=== PATIENT | female | born 1975 | race Caucasian/White ===

== ENCOUNTER 2016-11-02 20:29 | Emergency (ER) | payer MEDICAID, OTHER ==
[~2016-11-02] VITALS: Ht 157.5 cm; Wt 81.0 kg
[~2016-11-02 20:29] MED LIST: CYCL-36 PO; IBUP-232 PO; ZOLO20CO PO
[2016-11-02 20:42] VITALS: BP 117/78; PULSE 86; RESP 16; TEMP 97.8; O2SAT 98
[2016-11-02 21:28] LABS: BLOOD, URINE TRACE (NEG); GLUCOSE,URINE NEG (NEG); KETONE, URINE NEG (NEG); NITRITE,URINE NEG (NEG); PH, URINE 5.5 (5.0-8.5)
[2016-11-02 21:40] LABS: URINE COLOR YELLOW (YELLW/STRAW)
[2016-11-02 21:41] LABS: COMMENT (UR) CULT NOT INDICATED; CULTURE IF INDICATED CULT NOT INDICATED; SQUAMOUS EPITHELIAL CELL URINE 0-5 /hpf (0-5); WBC, URINE 0-2 /hpf (0-5)
[2016-11-03 00:05] VITALS: BP 111/69; PULSE 75; RESP 16; O2SAT 98
[2016-11-03 00:58] LABS: AUTOMATED NEUTROPHIL # 5.9 TH/MM3 (1.8-7.7); BASOPHIL # 0.1 TH/MM3 (0-0.2); BASOPHIL % 0.5 % (0.0-2.0); EOSINOPHIL # 0.3 TH/MM3 (0-0.4); EOSINOPHIL % 2.8 % (0.0-4.0); HEMATOCRIT 35.2 % (35.0-46.0); HEMO FLAGS DIFF FINAL; LYMPH % 29.5 % (9.0-44.0); MEAN CELL VOLUME 85.2 FL (80.0-100.0); MEAN CORPUSCULAR HEMOGLOBIN 27.7 PG (27.0-34.0); MEAN CORPUSCULAR HGB CONC 32.6 % (32.0-36.0); MONO % 7.9 % (0.0-8.0); NEUT % 59.3 % (16.0-70.0); PLATELET COUNT 315 TH/MM3 (150-450); RED BLOOD COUNT 4.14 MIL/MM3 (4.00-5.30); RED CELL DISTRIBUTION WIDTH 13.4 % (11.6-17.2); WHITE BLOOD COUNT 10.1 TH/MM3 (4.0-11.0)
[2016-11-03 01:04] LABS: POTASSIUM 3.7 MEQ/L (3.5-5.1)
[2016-11-03] MEDS ORDERED: ZOLO100T PO (01:06)
[2016-11-03 01:07] LABS: BICARBONATE 28.1 MEQ/L (21.0-32.0)
--- NOTE | 2016-11-03 01:49 | RADHPO ---
EXAM DATE/TIME: 11/03/2016 01:26 [facility] COMPARISON: No previous studies available for comparison. INDICATIONS : Right flank pain. ORAL CONTRAST: No oral contrast ingested. RADIATION DOSE: 17.34 CTDIvol (mGy) MEDICAL HISTORY : None SURGICAL HISTORY : Tubal ligation. ENCOUNTER: Initial ACUITY: 2 weeks PAIN SCALE: 4/10 LOCATION: Right flank TECHNIQUE: Volumetric scanning of the abdomen and pelvis was performed. Using automated exposure control and ad justment of the mA and/or kV according to patient size, radiation dose was kept as low as reasonably achievable to obtain optimal diagnostic quality images. The lack of IV contrast limits the diagnosis for certain organ pathology. FINDINGS: LOWER LUNGS: The visualized lower lungs are clear. LIVER: Homogeneous density without lesion. There is no dilation of the biliary tree. No calcified gallston es. SPLEEN: Normal size without lesion. PANCREAS: Within normal limits. KIDNEYS: Normal in size and shape. There is no mass, stone, or hydronephrosis. ADRENAL GLANDS: Within normal limits. VASCULAR: There is no aortic aneurysm. BOWEL/MESENTERY: The stomach, small bowel, and colon demonstrate no acute abnormality. There is no free intraperitone al air or fluid. The appendix is unremarkable. There is stool throughout the colon. No inflammatory c hanges. ABDOMINAL WALL: Within normal limits. RETROPERITONEUM: There is no lymphadenopathy. BLADDER: No wall thickening or mass. REPRODUCTIVE: Within normal limits. INGUINAL: There is no lymphadenopathy or hernia. MUSCULOSKELETAL: Within normal limits for patient age. CONCLUSION: 1. No calcified renal stones or hydronephrosis. 2. Unremarkable CT scan of the abdomen and pelvis. Jonathan Lozano MD on November 03, 2016 at 1:45 Board Certified Radiologist. This report was verified electronically.
--- NOTE | 2016-11-03 02:10 | PD ---
HPI Chief Complaint: R D Engineer Problem/Complaint Time Seen by Provider: 00:16 Travel History International Travel<30 days: No Contact w/Intl Traveler<30days: No Traveled to known affect area: No History of Present Illness HPI 41-year-old female presents to the emergency department for complaint of painful urination pelvic pain and back pain. Patient states symptoms have been present progressively worsening over the past one month. Patient is been seen by her primary care provider and in urgent care twice. Patient has been referred to her hydraulic spinner with appointment November 10. Patient states pain is worsening and unable to wait until her GRIPPER ATTACHER appointment for further evaluation. Patient states that symptoms remind her urinary tract infection. Patient's had no fever no chills no nausea no vomiting. Patient denies vaginal discharge or abnormal vaginal bleeding. Last period was normal for her and denies . Patient has been on recent antibiotic. Patient states she has had frequent urinary tract infections in the past and pain is similar although it is not the exact same. Patient states she's had no dyspareunia area. Patient states that pain is worsened by weightbearing and ambulating and lessened by sitting down. Patient does not report any lower extremity numbness tingling or weakness saddle anesthesia or bladder or bowel dysfunction. Patient rates her pain as 5-6/10 in intensity and constant. PFSH Past Medical History Narrative Medical ADD, anxiety depression, UTI, migraines, pneumonia, ovarian cyst tubal ligation ; occasional alcohol use: Nursing notes reviewed Hx Anticoagulant Therapy: No ADD: Yes Anxiety: Yes Depression: Yes Cardiovascular Problems: No Chemotherapy: No Cerebrovascular Accident: No Diabetes: No Diminished Hearing: No Genitourinary: Yes (KIDNEY INFECTIONS) Respiratory: No Immunizations Current: No Migraines: Yes Pneumonia: Yes (CHILDHOOD) Influenza Vaccination: Yes ?: Not LMP: 2 weeks ago : 4 Para: 4 Miscarriage: 0 : 0 Ovarian Cysts: Yes Tubal Ligation: Yes Past Surgical History Gynecologic Surgery: Yes (TUBAL LIGATION) Hysterectomy: No Oral Surgery: Yes (WISDOM TEETH EXTRACTED) Social History Alcohol Use: Yes (WINE OCCAS.) Tobacco Use: No (QUIT 2007) Substance Use: No Allergies-Medications (Allergen,Severity, Reaction): Coded Allergies: No Known Allergies (Verified , 11/03/16) Reported Meds & Prescriptions Reported Meds & Active Scripts Active Reported Zoloft (Sertraline HCl) 100 Mg Tab 100 Mg PO DAILY Review of Systems Except as stated in HPI: all other systems reviewed are Neg Physical Exam Narrative GENERAL: Well-developed well-nourished female in no acute distress no respiratory distress SKIN: Warm and dry. HEAD: Normocephalic. EYES: No scleral icterus. No injection or drainage. NECK: Supple, trachea midline. No JVD or lymphadenopathy. CARDIOVASCULAR: Regular rate and rhythm without murmurs, gallops, or rubs. RESPIRATORY: Breath sounds equal bilaterally. No accessory muscle use. GASTROINTESTINAL: Abdomen soft, non-tender, nondistended. Pelvic exam: Normal external exam no redness no induration no lesions; speculum exam scant white mucous no discharge no blood no clots cervical os closed; bimanual exam tenderness to palpation in the right adnexa no cervical motion tenderness no uterine enlargement no left adnexal tenderness. MUSCULOSKELETAL: No cyanosis, or edema. BACK: Nontender without obvious deformity. No CVA tenderness. Data Data Last Documented VS Vital Signs Date Time Temp Pulse Resp B/P Pulse Ox O2 Delivery O2 Flow Rate FiO2 11/02/16 20:42 97.8 86 16 117/78 98 Room Air Orders Urinalysis - C+S If Indicated (11/02/16 20:53) Ed Urine Pregnancytest Poc (11/02/16 20:53) Complete Blood Count With Diff (11/03/16 00:16) Basic Metabolic Panel (Bmp) (11/03/16 00:16) Wet Prep Profile (11/03/16 00:17) Gc And Chlamydia Pcr (11/03/16 00:17) Ct Abd/Pel W/O Iv Contrast (11/03/16 ) Labs Laboratory Tests Test 11/02/16 11/03/16 21:07 00:49 Urine Color YELLOW Urine Turbidity HAZY Urine pH 5.5 Urine Specific [place] 1.035 Urine Protein NEG mg/dL Urine Glucose (UA) NEG mg/dL Urine Ketones NEG mg/dL Urine Occult Blood TRACE Urine Nitrite NEG Urine Bilirubin NEG Urine Leukocyte Esterase NEG Urine WBC 0-2 /hpf Urine Squamous Epithelial 0-5 /hpf Cells Microscopic Urinalysis Comment CULT NOT INDICATED White Blood Count 10.1 TH/MM3 Red Blood Count 4.14 MIL/MM3 Hemoglobin 11.5 GM/DL Hematocrit 35.2 % Mean Corpuscular Volume 85.2 FL Mean Corpuscular Hemoglobin 27.7 PG Mean Corpuscular Hemoglobin 32.6 % Concent Red Cell Distribution Width 13.4 % Platelet Count 315 TH/MM3 Mean Platelet Volume 7.0 FL Neutrophils (%) (Auto) 59.3 % Lymphocytes (%) (Auto) 29.5 % Monocytes (%) (Auto) 7.9 % Eosinophils (%) (Auto) 2.8 % Basophils (%) (Auto) 0.5 % Neutrophils # (Auto) 5.9 TH/MM3 Lymphocytes # (Auto) 3.0 TH/MM3 Monocytes # (Auto) 0.8 TH/MM3 Eosinophils # (Auto) 0.3 TH/MM3 Basophils # (Auto) 0.1 TH/MM3 CBC Comment DIFF FINAL Differential Comment Clue Cells (Wet Prep) NONE SEEN Vaginal Trichomonas (Wet Prep) NONE SEEN Vaginal Yeast (Wet Prep) NONE SEEN Sodium Level 141 MEQ/L Potassium Level 3.7 MEQ/L Chloride Level 106 MEQ/L Carbon Dioxide Level 28.1 MEQ/L Anion Gap 7 MEQ/L Blood Urea Nitrogen 18 MG/DL Creatinine 0.80 MG/DL Estimat Glomerular Filtration 80 ML/MIN Rate Random Glucose 93 MG/DL Calcium Level 8.3 MG/DL [facility] Medical Decision Making Medical Screen Exam Complete: Yes Emergency Medical Condition: Yes Medical Record Reviewed: Yes Interpretation(s) Last Impressions Abdomen/Pelvis CT 11/03/16 0000 Signed Impressions: Service Date/Time: October 01:26 - CONCLUSION: 1. No calcified renal stones or hydronephrosis. 2. Unremarkable CT scan of the abdomen and pelvis. Jonathan Lozano MD CBC & BMP Diagram 11/03/16 00:49 Vital Signs Date Time Temp Pulse Resp B/P Pulse Ox O2 Delivery O2 Flow Rate FiO2 11/02/16 20:42 97.8 86 16 117/78 98 Room Air poc hcg: negative ua: trace blood o/w wnl Differential Diagnosis Pelvic pain, ovarian cyst, ectopic , PID, STI, UTI, musculoskeletal pain, renal colic Narrative Course Urinalysis trace blood [id number] hCG negative patient with pain on pelvic exam CT abdomen and pelvis ordered X line CBC metabolic panel values in normal range CT abdomen and pelvis reveals no acute abnormality Diagnosis Primary Impression: Pelvic pain Referrals: [facility] 1 week Patient Instructions: General Instructions Additional Instructions: Keep scheduled appointment as planned with hydraulic spinner next week Increase fluid hydration Follow-up with primary care provider call office to schedule appointment May continue to use nonsteroidal anti-inflammatory medication such as ibuprofen/ Advil/Motrin --- May use high-dose ibuprofen 800 mg as often as every 8 hours however do not take this medication with other nonsteroidal anti-inflammatory medication such as Naprosyn naproxen Anaprox or Aleve May use moist heat to area of discomfort as needed Return to the emergency department for any concerns or change in condition Disposition: 01 DISCHARGE HOME Condition: Stable Jill Prajapati MD Nov 03, 2016 02:10
[2016-11-03] MEDS ORDERED: KETOROLAC TROMETHAMINE 30 MG/ML (IVP) VIAL IV PUSH ONE (02:15)
[2016-11-03 02:43] VITALS: BP 117/71
[2016-11-03 12:02] LABS: CHLAMYDIA PCR NOT DETECTED (NOT DETECT); NEISSERIA PCR NOT DETECTED (NOT DETECT)
== END 2016-11-03 02:44 | disposition home or self-care (01) ==
LOC: PHED 20:29
DX: R10.2 Pelvic and perineal pain (principal); M54.9 Dorsalgia, unspecified; Z86.59 Personal history of other mental and behavioral disorders; Z87.440 Personal history of urinary (tract) infections; Z86.69 Personal history of other diseases of the nervous system and sense organs; Z87.42 Personal history of other diseases of the female genital tract; Z87.891 Personal history of nicotine dependence
CPT/HCPCS: 74176; 80048; 81001; 84703; 85025; 87210; 87491; 87591; 96374; 99284; J1885

== ENCOUNTER 2017-08-06 21:38 | Emergency (ER) | payer OTHER ==
[~2017-08-06 21:38] MED LIST changes: -CYCL-36 PO; -IBUP-232 PO; +ZOLO100T PO; -ZOLO20CO PO
[2017-08-06 21:40] VITALS: BP 142/81; PULSE 78; RESP 16; TEMP 98.4; O2SAT 99
[2017-08-06] MEDS ORDERED: predniSONE 50 MG TAB PO ONE (23:00)
[2017-08-06] MEDS ORDERED: KETOROLAC TROMETHAMINE 60 MG/2 ML (IM) VIAL IM ONE (23:00)
--- NOTE | 2017-08-06 23:00 | PD ---
HPI Chief Complaint: Pain: Acute or Chronic Time Seen by Provider: 22:47 Travel History International Travel<30 days: No Contact w/Intl Traveler<30days: No Traveled to known affect area: No History of Present Illness HPI 42-year-old female here for evaluation of acute onset of lower back pain. The patient reports that she bent over to lift up her child's toys at around 8:00 PM when she experienced the pain. The pain is over her lower back, sharp, constant, moderate, worse with movements. She has had similar pains in the past , however this one seems more severe. Pain radiates down her bilateral posterior legs. She is able to ambulate. States that she has had similar pains in the past and was diagnosed with a UTI a kidney infection as well. PFSH Past Medical History Hx Anticoagulant Therapy: No ADD: Yes Anxiety: Yes Depression: Yes Cardiovascular Problems: No Chemotherapy: No Cerebrovascular Accident: No Diabetes: No Diminished Hearing: No Genitourinary: Yes (KIDNEY INFECTIONS) Respiratory: No Immunizations Current: No Migraines: Yes Pneumonia: Yes (CHILDHOOD) ?: Unknown : 4 Para: 4 Miscarriage: 0 : 0 Ovarian Cysts: Yes Tubal Ligation: Yes Past Surgical History Gynecologic Surgery: Yes (TUBAL LIGATION) Hysterectomy: No Oral Surgery: Yes (WISDOM TEETH EXTRACTED) Social History Alcohol Use: Yes (WINE OCCAS.) Tobacco Use: No (QUIT 2007) Substance Use: No Allergies-Medications (Allergen,Severity, Reaction): Coded Allergies: No Known Allergies (Verified , 11/03/16) Reported Meds & Prescriptions Reported Meds & Active Scripts Active Reported Zoloft (Sertraline HCl) 100 Mg Tab 100 Mg PO DAILY Review of Systems Except as stated in HPI: all other systems reviewed are Neg Physical Exam Narrative GENERAL: Well-developed, well-nourished, awake, alert, ambulated to the restroom without difficulty and without assistance. SKIN: Focused skin assessment warm/dry. No rash. HEAD: Atraumatic. Normocephalic. EYES: Pupils equal and round. No scleral icterus. No injection or drainage. ENT: No nasal bleeding or discharge. Mucous membranes pink and moist. NECK: Trachea midline. No JVD. CARDIOVASCULAR: Regular rate and rhythm. No murmur appreciated. RESPIRATORY: No accessory muscle use. Clear to auscultation. Breath sounds equal bilaterally. GASTROINTESTINAL: Abdomen soft, non-tender, nondistended. Hepatic and splenic margins not palpable. MUSCULOSKELETAL: No obvious deformities. No clubbing. No cyanosis. No edema. No CVA tenderness. NEUROLOGICAL: Awake and alert. No obvious cranial nerve deficits. Motor grossly within normal limits. Normal speech. No saddle anesthesia. Normal strength in bilateral lower extremities in flexion and extension at the foot, ankle, knee, and thigh joints. Brisk patellar tendon reflexes bilaterally. Normal sensation in bilateral lower extremities. Moderate lower lumbar spine tenderness without step-off as well as paraspinal tenderness in the lower lumbar region. PSYCHIATRIC: Appropriate mood and affect; insight and judgment normal. Data Data Last Documented VS Vital Signs Date Time Temp Pulse Resp B/P (MAP) Pulse Ox O2 Delivery O2 Flow Rate FiO2 08/06/17 21:40 98.4 78 16 142/81 (101) 99 Room Air Orders Orders Spine, Lumbar Comp W/Obliq (08/06/17 ) Urinalysis - C+S If Indicated (08/06/17 22:52) Ed Urine Pregnancytest Poc (08/06/17 22:52) Ketorolac Inj (Toradol Inj) (08/06/17 23:00) Prednisone (Deltasone) (08/06/17 23:00) Nitrofurantoin Monohyd Macrocr (Macrobid (08/06/17 23:45) Labs Laboratory Tests Test 08/06/17 23:15 Urine Color YELLOW Urine Turbidity CLEAR Urine pH 5.0 Urine Specific [place] 1.013 Urine Protein NEG mg/dL Urine Glucose (UA) NEG mg/dL Urine Ketones NEG mg/dL Urine Occult Blood TRACE Urine Nitrite NEG Urine Bilirubin NEG Urine Urobilinogen LESS THAN 2.0 MG/DL Urine Leukocyte Esterase NEG Urine RBC 2 /hpf Urine WBC 1 /hpf Urine Squamous Epithelial Cells 2 /hpf Urine Bacteria RARE /hpf Urine Hyaline Casts 3 /lpf Urine Mucus FEW /lpf Microscopic Urinalysis Comment CULT NOT INDICATED MDM Medical Decision Making Medical Screen Exam Complete: Yes Emergency Medical Condition: Yes Differential Diagnosis Lumbar strain, disc herniation, lumbar fracture, UTI/pyelonephritis, cord compression/spinal stenosis unlikely Narrative Course Vital signs reviewed. UA: Trace occult blood, rare bacteria, few mucus. The patient states she is about to start her menstrual period. She would like to be started on antibiotics. I will start her on Macrobid. Urine is negative. Lumbar spine x-ray: Mild levoscoliosis. Mild degenerative changes. No acute findings. The patient was made aware of all findings. She is resting comfortably. There are no red flags for low back pain. She has brisk patellar tendon reflexes bilaterally. No saddle anesthesia. Normal muscle strength in flexion and extension in bilateral lower extremities. She has a lower back strain. She will also be started on Macrobid for her bacteriuria. She is stable for discharge home with outpatient follow-up with a primary care physician this week. She was advised on when to return to the emergency department. She verbalizes understanding and agreement with plan. Diagnosis Primary Impression: Low back strain Qualified Codes: S39.012A - Strain of muscle, fascia and tendon of lower back , initial encounter Additional Impression: Bacteriuria Referrals: Primary Care Physician 3 days Additional Instructions: Follow-up with a primary care physician this week. Return to the emergency department for worsening symptoms or any other concerns. Scripts Prednisone (Prednisone) 50 Mg Tab 50 MG PO DAILY for 4 Days, #4 TAB 0 Refills Prov: Damaso Guevara MD 08/06/17 Nitrofurantoin Monohydrate Macrocrystals (Macrobid) 100 Mg Cap 100 MG PO BID for Infection for 5 Days, #10 CAP 0 Refills Prov: Damaso Guevara MD 08/06/17 Disposition: 01 DISCHARGE HOME Condition: Stable Damaso Guevara MD Aug 06, 2017 23:00
--- NOTE | 2017-08-06 23:25 | RADRPT ---
EXAM DATE/TIME: 08/06/2017 23:06 [facility] COMPARISON: SPINE LUMBAR COMPLETE W/OBLIQ, May 06, 2015, 19:50. INDICATIONS : Low back pain with no known trauma. MEDICAL HISTORY : None. SURGICAL HISTORY : Tubal ligation. ENCOUNTER: Initial ACUITY: 1 day PAIN SCORE: 8/10 LOCATION: low back FINDINGS: There are five non-rib bearing vertebral bodies. The vertebral bodies are in mild levoscoliosis with out evidence of subluxation or scoliosis. The disc spaces are maintained. The posterior elements ar e intact without evidence of spondylolysis. The pedicles are intact. Bony mineralization is normal. No fracture is identified. CONCLUSION: 1. Mild levoscoliosis. Mild degenerative change. No acute findings. Sekou Cleary MD on August 06, 2017 at 23:22 Board Certified Radiologist. This report was verified electronically.
[2017-08-06 23:35] LABS: BACTERIA, URINE RARE /hpf; BILIRUBIN, URINE NEG (NEG); BLOOD, URINE TRACE (NEG); GLUCOSE,URINE NEG (NEG); HYALINE CAST, URINE 3 /lpf (RARE); KETONE, URINE NEG (NEG); MUCUS URINE FEW /lpf (OCC); NITRITE,URINE NEG (NEG); SQUAMOUS EPITHELIAL CELL URINE 2 /hpf (0-5); URINE COLOR YELLOW (YELLW/STRAW); URINE LEUKOCYTE ESTERASE NEG (NEG)
[2017-08-06] MEDS ORDERED: NITROFURANTOIN MONOHYD MACROCR 100 MG CAP PO ONE (23:45)
[2017-08-06] MEDS ORDERED: MACR100C2 PO (23:53)
[2017-08-06] MEDS ORDERED: PRED50 PO (23:53)
== END 2017-08-07 00:11 | disposition home or self-care (01) ==
LOC: NEPD 21:38
DX: S39.012A Strain of muscle, fascia and tendon of lower back, initial encounter (principal); R82.71 Bacteriuria; X50.0XXA Overexertion from strenuous movement or load, initial encounter; Y93.89 Activity, other specified
CPT/HCPCS: 72110; 81001; 84703; 87086; 96372; 99284; J1885; J7512